=== PATIENT | male | born 1960 | race Caucasian/White ===

== ENCOUNTER 2021-05-29 16:56 | Emergency (ER) | payer SELFPAY ==
[2021-05-29 17:55] LABS: #Lymphocytes 0.9 thou/uL (1.20-3.40); #Monocytes 0.5 thou/uL (0.11-0.59); #Neutrophils 5.9 thou/uL (1.40-6.50); %Basophils 0.6 % (0.0-1.0); %Eosinophils 0.1 % (0.0-10.0); %Lymphocytes 11.8 % (21.0-51.0); %Monocytes 6.2 % (0.0-10.0); %Neutrophils 81.4 % (42.0-75.0); Hemoglobin 13.9 g/dL (14.0-18.0); Mean Corpuscular HGB CONC 33.9 g/dL (32.0-36.0); Mean Corpuscular Hemoglobin 29.2 pg (27.0-31.0); Mean Corpuscular Volume 86.2 fL (78.0-98.0); Mean Platelet Volume 7.6 fL (7.4-10.4); Platelet Count 228 thou/uL (130-400); RBC Distribution Width 13.1 % (11.5-14.5); Red Blood Cell (RBC) Count 4.75 mill/uL (4.70-6.10); White Blood Cell (WBC) Count 7.2 thou/uL (4.8-10.8)
[2021-05-29] MEDS ORDERED: Albuterol 200 PUFF (6.7GM INHALER) ONE (18:33)
[2021-05-29] MEDS ORDERED: Aspirin Chewable 81 MG TAB ONE (18:34)
[2021-05-29] MEDS ORDERED: Magnesium 2 GM/50 ML BAG (IN WATER) ONE (18:34)
[2021-05-29] MEDS ORDERED: Albuterol Sulfate 1.25 MG/3 ML NEB ONE (18:34)
[2021-05-29] MEDS ORDERED: Dexamethasone 10 MG/ML VIAL ONE (18:34)
[2021-05-29 18:43] LABS: ALT (SGPT) 24 U/L (8-55); AST (SGOT) 56 U/L (5-34); Albumin 3.9 g/dL (3.5-5.0); Alkaline Phosphatase 53 U/L (40-110); Anion Gap 15 mmol/L (10-20); BUN (Urea Nitrogen) 22 mg/dL (8.4-25.7); Bilirubin, Total 0.6 mg/dL (0.2-1.2); Calc. Creatinine Clearance 0 mL/min (70-130); Calcium 9.3 mg/dL (7.8-10.44); Carbon Dioxide 25 mmol/L (22-29); Chloride 102 mmol/L (98-107); Globulin 3.8 g/dL (2.4-3.5); Glucose 113 mg/dL (70-105); Protein, Total 7.7 g/dL (6.0-8.3); Sodium 138 mmol/L (136-145)
[2021-05-29] MEDS ORDERED: Albuterol 200 PUFF (6.7GM INHALER) INH SCH (19:00)
[2021-05-29 19:17] LABS: SARS-CoV-2 NAA Rapid Test DETECTED (NotDetected)
[2021-05-29] MEDS ORDERED: cefTRIAXone\\ROCEPHIN 1 GM VIAL ONE (19:22)
[2021-05-29] MEDS ORDERED: Sodium Chloride 0.9% 100 ML ONE (19:22)
[2021-05-30 01:35] LABS: Troponin I Less than 0.010 ng/mL (< 0.028)
[2021-05-30] MEDS ORDERED: Dexamethasone 4 MG TAB ONE (01:38)
[2021-05-30 04:53] LABS: Anion Gap 16 mmol/L (10-20); BUN (Urea Nitrogen) 24 mg/dL (8.4-25.7); Calc. Creatinine Clearance 0 mL/min (70-130); Calcium 9.5 mg/dL (7.8-10.44); Carbon Dioxide 25 mmol/L (22-29); Chloride 103 mmol/L (98-107); Glucose 185 mg/dL (70-105); Potassium 4.3 mmol/L (3.5-5.1); Sodium 140 mmol/L (136-145)
[2021-05-30] MEDS ORDERED: Aspirin Chewable 81 MG TAB ONE (08:26)
[2021-05-30] MEDS ORDERED: Iopamidol 370 76% 100 ML VIAL ONE (10:03)
== END 2021-05-30 08:49 | disposition short-term general hospital (02) ==
LOC: BURERS 16:56
DX: U07.1 COVID-19 (principal); J12.82 Pneumonia due to coronavirus disease 2019; I10 Essential (primary) hypertension; E78.5 Hyperlipidemia, unspecified; E78.00 Pure hypercholesterolemia, unspecified
CPT/HCPCS: 36415; 71045; 71275; 80048; 80053; 83605; 83880; 84484; 85025; 85379; 87040; 93005; 96365; 96367; 96375; J0696; J1100; J3475; J3490; J8540; Q9967; U0002